=== PATIENT | male | born 1980 | race Caucasian/White ===

== ENCOUNTER 2017-05-25 03:33 | Emergency (ER) | payer MEDICAID ==
[~2017-05-25] VITALS: Ht 195.6 cm; Wt 90.7 kg
[~2017-05-25 03:33] MED LIST: BACTRIM DS 8001 TA1 PO; BUSPIRONE HCL10 MG PO; CIPRO 500MG TA500 MG PO; DAILY VALUE1 EACH PO; ENTEX PO; FLEXERIL10 MG PO; GABAPENTIN300 MG PO; IBU-8800 MG PO; KEFLEX 500MG.500 MG PO; LODINE400 MG PO; PHENERGAN 25MG.25 M1 PO; ULTRAM 50 MG TA50 MG PO; VICODIN 5/500 T1 TAB PO; VOLTAREN75 MG PO; ZITHROMAX Z PA250 MG PO
--- NOTE | 2017-05-25 04:04 | Emergency Room Report ---
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 Y Clinical Suspician of Infection? Y Mental Status: 1 - Regular (Normal Baseline) Sepsis Risk:Low Sepsis Risk Have you (or family members/close friends) recently traveled outside the [place]? N If Yes, where/when: Have you had exposure to infectious disease within the past month? N TB? Other? Specify: Source patient, RN notes reviewed, family, old records Exam Limitations no limitations Comment pt with upper abd pain with nausea and vomiting with no melena and no diarrhea - occ etoh and has known hep c Cardiac Chest Pain Chest pain indicative of cardiac No Timing/Duration this evening Severity moderate ALLERGIES Coded Allergies: penicillin G (Mild, 08/07/15) metaproterenol (From ALUPENT) (12/24/16) Home Medications Reported Medications Multivitamin (Daily Value) 1 EACH PO DAILY History Medical History General CAD? No Angina: No NE: No Hypertension? No Hyperlipidemia? No CHF? No DVT? No PE? No COPD? No Asthma? Yes Anemia? No GERD? No Gastric ulcers? No GI Bleed? No Hernia? No Thyroid Problems? No Hypothyroidism? No CVA? No Seizures? No Diabetes? No Renal Insuffiency? No End Stage Renal Disease? No UTI? No Stones? No BPH? No GB Disease: No Nephritic Syndrome? No Asplenia? No Hepatitis? Yes Sickle Cell Disease? No Arthritis? No Migraines? No Cataracts? No Glaucoma? No MRSA? No HIV? No TB? No Anxiety? No Depression? No Cancer? No Immunization Hx DT/Tetanus 1-4 YRS Surgical Hx Previous Surgery?Y RT SHOULDER LOW BACK SINUS Social History Smoking Hx Smoker: Current Every Day Smoker Tobacco: Yes Type Cigarettes Packs/day 1 1/2 - 2 Packs Alcohol Alcohol: No Drugs none Review of Systems All Other Systems Reviewed and Negative Constitutional denies fever Eyes denies drainage ENT denies: ear pain, epistaxis, throat pain. Respiratory denies cough, denies shortness of breath, denies wheezing Cardiovascular denies chest pain, denies syncope Gastrointestinal see HPI, abdominal pain, denies diarrhea, nausea, vomiting Genitourinary denies: dysuria, frequency, hesitancy, hematuria. Musculoskeletal denies back pain, denies joint pain, denies joint swelling, denies neck pain Skin denies rash Psychiatric/Neurological denies headache, denies seizure Physical Exam Vital Signs Vital Signs Date Time Temp Pulse Resp B/P Pulse O2 O2 Flow FiO2 Ox Delivery Rate 05/25 0733 99.0 61 14 111/82 96 05/25 0726 99.0 61 14 111/82 96 05/25 0611 100.5 61 14 116/73 96 05/25 0557 14 05/25 0515 100.5 61 14 111/61 96 05/25 0342 99.1 76 15 143/66 98 - WBC >12,000 or <4,000 or 10% bands? 2 or more SIRS Criteria Met? B/P:116/73 MAP:91 Creatinine >2.0? UA output<0.5ml/kg/hr for 2 hrs? Platelet count >100,000? Lactate >2.0mmol/1? INR >1.2 or PTT > than 60 sec? Evidence of Organ Dysfunction? Provider documented clinical suspician of infection? Y Sepsis Criteria Count: 0 Sepsis Risk: Low Sepsis Risk General Appearance no apparent distress Eye Exam - bilateral eye PERRL, bilateral eye EOMI Ear, Nose, Throat normal ENT inspection Neck supple Respiratory Status No: respiratory distress. Lung Sounds bilateral: lungs clear. 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 No Results/Orders Laboratory Tests 05/25/17 0710: Opiates Screen POSITIVE H, Urine Methadone Screen NEGATIVE, Barbiturates NEGATIVE, Phencyclidine Screen NEGATIVE, Amphetamines Screen NEGATIVE, Benzodiazepines Screen NEGATIVE, Cocaine Screen NEGATIVE, Marijuana (THC) Screen NEGATIVE, Urine Color YELLOW, Urine Appearance SL CLOUDY, Urine pH 8.0, Ur Specific [place] 1.020, Urine Protein TRACE H, Urine Ketones NEGATIVE, Urine Blood NEGATIVE, Urine Nitrate NEGATIVE, Urine Bilirubin NEGATIVE, Urine Urobilinogen 1.0, Ur Leukocyte Esterase NEGATIVE, Urine WBC 3-5, Ur Squamous Epith Cells 3-5, Urine Bacteria 4+, Urine Mucus 2+, Urine Glucose NEGATIVE 05/25/17 0425: Sodium 139, Potassium 3.3 L, Chloride 105, Carbon Dioxide 28, BUN 20 H, Creatinine 0.8, Estimated Creat Clear 162, Estimated GFR (MDRD) 109, Glucose 108 H, Calcium 7.8 L, Total Bilirubin 0.5, AST 61 H, ALT 103 H, Alkaline Phosphatase 97, Total Protein 7.0, Albumin 3.3 L, Globulin 3.7 H, Albumin/ Globulin Ratio 0.9 L, Amylase 32, Lipase 78, WBC 13.9 H, RBC 4.73, Hgb 14.2, Hct 42.3, MCV 89.5, RDW 13.4, Plt Count 196, MPV 6.8 L, Gran % 77.2, Gran # 10.7 H, Lymphocytes % 15.2, Monocytes % 6.1, Eosinophils % 1.3, Basophils % 0.3 , Lymphocytes # 2.1, Monocytes # 0.9, Eosinophils # 0.2, Basophils # 0.0, PUBS MCHC 33.5, MCH 30.0, Alcohols 0 Current Medication Orders Sig/Tori Start time Last Medication Dose Route Stop Time Status Admin Famotidine 20 MG ONCE ONE 05/25 545 DC 05/25 IV 05/25 0546 0550 Metoclopramide HCl 10 MG ONCE ONE 05/25 545 MT 05/25 IVP 05/25 0546 0556 Morphine Sulfate 2 MG ONCE ONE 05/25 545 MT 05/25 IV 05/25 0546 0557 Promethazine HCl 12.5 MG ONCE ONE 05/25 545 MT 05/25 IV 05/25 0546 0552 Sodium Chloride 8 ML ONCE ONE 05/25 545 MT 05/25 IV 05/25 0546 0559 Sodium Chloride 25 ML ONCE ONE 05/25 545 MT 05/25 IV 05/25 0559 0558 Famotidine 0 .STK-MED ONE 05/25 543 MT IV Sodium Chloride 0 .STK-MED ONE 05/25 543 DC IV Morphine Sulfate 0 .STK-MED ONE 05/25 0542 DC .ROUTE Promethazine HCl 0 .STK-MED ONE 05/25 0542 DC .ROUTE Sodium Chloride 25 ML .STK-MED ONE 05/25 0542 DC IV Metoclopramide HCl 0 .STK-MED ONE 05/25 0541 DC .ROUTE Ondansetron HCl 0 .STK-MED ONE 05/25 0351 DC .ROUTE Ondansetron HCl 4 MG ONCE ONE 05/25 0345 DC 05/25 IV 05/25 0346 0413 Sodium Chloride 10 ML PRN PRN 05/25 0345 AC IV 05/26 0342 Sodium Chloride 1,000 ML .Q1H1M 05/25 0345 DC 05/25 IV 05/25 0445 0549 Sodium Chloride 10 ML PRN PRN 05/25 0345 AC IV 05/26 0342 Orders Procedure Date/time Status DIET-NOTHING BY MOUTH 05/25 B Active CULTURE, URINE 05/25 0710 Active DRUG ABUSE SCREEN (TRIAGE) 05/[address] ABD & PELVIS W/O CONTRAST 05/[address] SCAN REQ 05/25 0343 Active IV SALINE LOCK 05/25 0343 Active URINALYSIS/COMPLETE 05/25 0343 Complete LIPASE 05/25 0343 Complete COMPLETE METABOLIC PANEL 05/25 0343 Complete CBC WITH AUTO DIFF 05/25 034 Complete AMYLASE 05/25 0343 Complete ALCOHOL 05/25 0343 Complete XRAY/CT/US XRAY/CT/US CT abdomen, pelvis CT interpretation by discussed w/radiologist Time results known: 0533 CT Results abnormal (see report) Departure Departure Time of Disposition 623 Disposition DC Home or Self Care(routine) Clinical Impression Primary Impression: Gastritis Qualifiers: Gastritis type: unspecified gastritis Chronicity: acute Gastritis bleeding: without bleeding Qualified Code: K29.00 - Acute gastritis without bleeding Condition STABLE Patient Instructions DI for Gastritis Additional Instructions use meds and see pcp for follow up Discharge Counseling Counseled pt/family regarding diagnosis, test results, medications/RX, follow up needs Prescriptions Current Visit Scripts Pantoprazole Sodium (Protonix 40MG TAB) 40 MG PO DAILY #30 TAB ED Critical Care Critical Care No at 0742
--- NOTE | 2017-05-25 04:04 | Emergency Room Report ---
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 Y Clinical Suspician of Infection? Y Mental Status: 1 - Regular (Normal Baseline) Sepsis Risk:Low Sepsis Risk Have you (or family members/close friends) recently traveled outside the [place]? N If Yes, where/when: Have you had exposure to infectious disease within the past month? N TB? Other? Specify: Source patient, RN notes reviewed, family, old records Exam Limitations no limitations Comment pt with upper abd pain with nausea and vomiting with no melena and no diarrhea - occ etoh and has known hep c Cardiac Chest Pain Chest pain indicative of cardiac No Timing/Duration this evening Severity moderate ALLERGIES Coded Allergies: penicillin G (Mild, 08/07/15) metaproterenol (From ALUPENT) (12/24/16) Home Medications Reported Medications Multivitamin (Daily Value) 1 EACH PO DAILY History Medical History General CAD? No Angina: No CA: No Hypertension? No Hyperlipidemia? No CHF? No DVT? No PE? No COPD? No Asthma? Yes Anemia? No GERD? No Gastric ulcers? No GI Bleed? No Hernia? No Thyroid Problems? No Hypothyroidism? No CVA? No Seizures? No Diabetes? No Renal Insuffiency? No End Stage Renal Disease? No UTI? No Stones? No BPH? No GB Disease: No Nephritic Syndrome? No Asplenia? No Hepatitis? Yes Sickle Cell Disease? No Arthritis? No Migraines? No Cataracts? No Glaucoma? No MRSA? No HIV? No TB? No Anxiety? No Depression? No Cancer? No Immunization Hx DT/Tetanus 1-4 YRS Surgical Hx Previous Surgery?Y RT SHOULDER LOW BACK SINUS Social History Smoking Hx Smoker: Current Every Day Smoker Tobacco: Yes Type Cigarettes Packs/day 1 1/2 - 2 Packs Alcohol Alcohol: No Drugs none Review of Systems All Other Systems Reviewed and Negative Constitutional denies fever Eyes denies drainage ENT denies: ear pain, epistaxis, throat pain. Respiratory denies cough, denies shortness of breath, denies wheezing Cardiovascular denies chest pain, denies syncope Gastrointestinal see HPI, abdominal pain, denies diarrhea, nausea, vomiting Genitourinary denies: dysuria, frequency, hesitancy, hematuria. Musculoskeletal denies back pain, denies joint pain, denies joint swelling, denies neck pain Skin denies rash Psychiatric/Neurological denies headache, denies seizure Physical Exam Vital Signs Vital Signs Date Time Temp Pulse Resp B/P Pulse O2 O2 Flow FiO2 Ox Delivery Rate 05/25 0733 99.0 61 14 111/82 96 05/25 0726 99.0 61 14 111/82 96 05/25 0611 100.5 61 14 116/73 96 05/25 0557 14 05/25 0515 100.5 61 14 111/61 96 05/25 0342 99.1 76 15 143/66 98 - WBC >12,000 or <4,000 or 10% bands? 2 or more SIRS Criteria Met? B/P:116/73 MAP:91 Creatinine >2.0? UA output<0.5ml/kg/hr for 2 hrs? Platelet count >100,000? Lactate >2.0mmol/1? INR >1.2 or PTT > than 60 sec? Evidence of Organ Dysfunction? Provider documented clinical suspician of infection? Y Sepsis Criteria Count: 0 Sepsis Risk: Low Sepsis Risk General Appearance no apparent distress Eye Exam - bilateral eye PERRL, bilateral eye EOMI Ear, Nose, Throat normal ENT inspection Neck supple Respiratory Status No: respiratory distress. Lung Sounds bilateral: lungs clear. 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 No Results/Orders Laboratory Tests 05/25/17 0710: Opiates Screen POSITIVE H, Urine Methadone Screen NEGATIVE, Barbiturates NEGATIVE, Phencyclidine Screen NEGATIVE, Amphetamines Screen NEGATIVE, Benzodiazepines Screen NEGATIVE, Cocaine Screen NEGATIVE, Marijuana (THC) Screen NEGATIVE, Urine Color YELLOW, Urine Appearance SL CLOUDY, Urine pH 8.0, Ur Specific [place] 1.020, Urine Protein TRACE H, Urine Ketones NEGATIVE, Urine Blood NEGATIVE, Urine Nitrate NEGATIVE, Urine Bilirubin NEGATIVE, Urine Urobilinogen 1.0, Ur Leukocyte Esterase NEGATIVE, Urine WBC 3-5, Ur Squamous Epith Cells 3-5, Urine Bacteria 4+, Urine Mucus 2+, Urine Glucose NEGATIVE 05/25/17 0425: Sodium 139, Potassium 3.3 L, Chloride 105, Carbon Dioxide 28, BUN 20 H, Creatinine 0.8, Estimated Creat Clear 162, Estimated GFR (MDRD) 109, Glucose 108 H, Calcium 7.8 L, Total Bilirubin 0.5, AST 61 H, ALT 103 H, Alkaline Phosphatase 97, Total Protein 7.0, Albumin 3.3 L, Globulin 3.7 H, Albumin/ Globulin Ratio 0.9 L, Amylase 32, Lipase 78, WBC 13.9 H, RBC 4.73, Hgb 14.2, Hct 42.3, MCV 89.5, RDW 13.4, Plt Count 196, MPV 6.8 L, Gran % 77.2, Gran # 10.7 H, Lymphocytes % 15.2, Monocytes % 6.1, Eosinophils % 1.3, Basophils % 0.3 , Lymphocytes # 2.1, Monocytes # 0.9, Eosinophils # 0.2, Basophils # 0.0, PUBS MCHC 33.5, MCH 30.0, Alcohols 0 Current Medication Orders Sig/Tori Start time Last Medication Dose Route Stop Time Status Admin Famotidine 20 MG ONCE ONE 05/25 545 DC 05/25 IV 05/25 0546 0550 Metoclopramide HCl 10 MG ONCE ONE 05/25 545 UT 05/25 IVP 05/25 0546 0556 Morphine Sulfate 2 MG ONCE ONE 05/25 545 UT 05/25 IV 05/25 0546 0557 Promethazine HCl 12.5 MG ONCE ONE 05/25 545 UT 05/25 IV 05/25 0546 0552 Sodium Chloride 8 ML ONCE ONE 05/25 545 UT 05/25 IV 05/25 0546 0559 Sodium Chloride 25 ML ONCE ONE 05/25 545 UT 05/25 IV 05/25 0559 0558 Famotidine 0 .STK-MED ONE 05/25 543 UT IV Sodium Chloride 0 .STK-MED ONE 05/25 543 DC IV Morphine Sulfate 0 .STK-MED ONE 05/25 0542 DC .ROUTE Promethazine HCl 0 .STK-MED ONE 05/25 0542 DC .ROUTE Sodium Chloride 25 ML .STK-MED ONE 05/25 0542 DC IV Metoclopramide HCl 0 .STK-MED ONE 05/25 0541 DC .ROUTE Ondansetron HCl 0 .STK-MED ONE 05/25 0351 DC .ROUTE Ondansetron HCl 4 MG ONCE ONE 05/25 0345 DC 05/25 IV 05/25 0346 0413 Sodium Chloride 10 ML PRN PRN 05/25 0345 AC IV 05/26 0342 Sodium Chloride 1,000 ML .Q1H1M 05/25 0345 DC 05/25 IV 05/25 0445 0549 Sodium Chloride 10 ML PRN PRN 05/25 0345 AC IV 05/26 0342 Orders Procedure Date/time Status DIET-NOTHING BY MOUTH 05/25 B Active CULTURE, URINE 05/25 0710 Active DRUG ABUSE SCREEN (TRIAGE) 05/[address] ABD & PELVIS W/O CONTRAST 05/[address] SCAN REQ 05/25 0343 Active IV SALINE LOCK 05/25 0343 Active URINALYSIS/COMPLETE 05/25 0343 Complete LIPASE 05/25 0343 Complete COMPLETE METABOLIC PANEL 05/25 0343 Complete CBC WITH AUTO DIFF 05/25 034 Complete AMYLASE 05/25 0343 Complete ALCOHOL 05/25 0343 Complete XRAY/CT/US XRAY/CT/US CT abdomen, pelvis CT interpretation by discussed w/radiologist Time results known: 0533 CT Results abnormal (see report) Departure Departure Time of Disposition 623 Disposition DC Home or Self Care(routine) Clinical Impression Primary Impression: Gastritis Qualifiers: Gastritis type: unspecified gastritis Chronicity: acute Gastritis bleeding: without bleeding Qualified Code: K29.00 - Acute gastritis without bleeding Condition STABLE Patient Instructions DI for Gastritis Additional Instructions use meds and see pcp for follow up Discharge Counseling Counseled pt/family regarding diagnosis, test results, medications/RX, follow up needs Prescriptions Current Visit Scripts Pantoprazole Sodium (Protonix 40MG TAB) 40 MG PO DAILY #30 TAB ED Critical Care Critical Care No at 0742
[2017-05-25 04:35] LABS: HEMOGLOBIN 14.2 g/dL (14.1-18.0); LYMPH # 2.1 K/mm3 (0.7-4.5); LYMPH % 15.2 % (10-50)
[2017-05-25 07:22] LABS: URINE BILIRUBIN - DIPSTICK NEGATIVE (NEG); URINE BLOOD NEGATIVE (NEG)
[2017-05-25 07:31] LABS: AMPHETAMINES/METAMPHETAMINES NEGATIVE ng/mL (<1000)
[2017-05-25 07:33] VITALS: BP 111/82
[2017-05-25] MEDS ORDERED: PROTONIX 40MG T40 MG PO (07:42)
--- NOTE | 2017-05-25 10:48 | RADIOLOGY REPORT PS360 ---
CT ABD PELVIS W/O CONTRAST CLINICAL INDICATION: ABD PAIN / VOMITING ORDERING PHYSICIAN: Tien Muse MD PATIENT AGE: 37 years COMPARISON: None TECHNIQUE: Axial images obtained with sagittal and coronal reformats. PROCEDURE: Oral Contrast: None IV Contrast: None . FINDINGS: No acute finding in the lung bases. There is a small hiatal hernia Mild hepatomegaly. Portal vein is prominent measuring up to 1.9 cm. No focal liver lesions are evident. There is some mild periportal hypoattenuation which may be due to periportal edema. The gallbladder and pancreas are unremarkable. No adrenal mass. There is minimal calcification of the right adrenal gland. There are soft tissue nodular opacities in the retroperitoneum suggesting small lymph nodes. Mildly prominent collateral vessels is an additional consideration. CT scan with contrast may be of further value. The spleen is enlarged measuring 19 cm. No hydronephrosis or obstructing renal or ureteral calculi. No intestinal obstruction or free air. There is a mild amount of retained colonic feces. No evidence of appendicitis or diverticulitis. Small amount fluid is present within the pelvis. No acute bony anomalies. IMPRESSION: 1. Hepatosplenomegaly with prominent portal vein, small amount of ascites, and suggestion of either small lymph nodes or retroperitoneal varices. Portal hypertension was considered. 2. Small hiatal hernia.
== END 2017-05-25 08:01 | disposition home or self-care (01) ==
LOC: ER 03:33
PROVIDERS: Emergency Medicine
DX: K29.00 Acute gastritis without bleeding (principal); Z88.0 Allergy status to penicillin; J45.909 Unspecified asthma, uncomplicated; F17.210 Nicotine dependence, cigarettes, uncomplicated
CPT/HCPCS: J2405